=== PATIENT | male | born 1955 | race Caucasian/White ===

== ENCOUNTER 2019-03-15 17:04 | Emergency (ER) | payer BC, SELFPAY ==
[2019-03-15 19:19] LABS: Absolute Lymphocytes (CBC) 1.6 K/uL (0.7-4.9); Absolute Monocytes 0.8 K/uL (0.1-1.3); Absolute Neutrophil 4.2 K/uL (1.8-8.0); Basophils % 0.6 % (0-1.3); Eosinophils % 5.1 % (0-4.4); Hematocrit 46.1 % (39.6-49.0); Lymphocytes % 23.2 % (15.3-44.8); MPV 7.5 fL (7.6-11.3); RBC Red Blood Cell Count 4.94 M/uL (4.33-5.43)
[2019-03-15 19:21] LABS: Protime INR 0.94
--- NOTE | 2019-03-15 19:28 | RAD REPORT ---
EXAM DESCRIPTION: Tonia Single View03/15/2019 7:15 pm CLINICAL HISTORY: Chest pain COMPARISON: none FINDINGS: The lungs appear clear of acute infiltrate. The heart is normal size IMPRESSION: No acute abnormalities displayed
[2019-03-15 19:35] LABS: ALT/SGPT 24 U/L (12-78); AST/SGOT 13 U/L (15-37); Albumin 3.7 g/dL (3.4-5.0); Alkaline Phosphatase 57 U/L (45-117); BUN Blood Urea Nitrogen 20 mg/dL (7-18); Bicarbonate 26 mmol/L (21-32); Bilirubin Direct 0.1 mg/dL (0-0.2); Bilirubin Total 0.3 mg/dL (0.2-1.0); Glucose Level 86 mg/dL (74-106); Magnesium 2.2 mg/dL (1.8-2.4); NT PRO-BNP 23 pg/mL (<125); Potassium 4.1 mmol/L (3.5-5.1); Protein, Total 7.3 g/dL (6.4-8.2); Sodium Level 143 mmol/L (136-145); Troponin (Emerg Dept Use Only) < 0.02 ng/mL (0.0-0.045)
--- NOTE | 2019-03-15 19:57 | EDPHYS ---
Physician Documentation [facility] Name: Sean Serra Age: 63 yrs Sex: Male : 1955 Arrival Date: 03/15/2019 Time: 17:05 Bed 25 Private MD: ED Physician Dean Gaytan HPI: 03/15 19:50 This 63 yrs old Male presents to ER via Ambulatory with complaints of gs Palpitations, Chest Tightness. 19:50 Onset: The symptoms/episode began/occurred this morning. Duration: The patient or gs guardian reports multiple episodes, that wax and wane, with no pattern, the episodes last approximately 5 second(s). Modifying factors: The symptoms are aggravated by nothing. The symptoms are alleviated by nothing. Associated signs and symptoms: Pertinent negatives: SOB. Severity of symptoms: At their worst the symptoms were mild in the emergency department the symptoms have resolved. The patient has experienced similar episodes in the past, a few times. Historical: - Allergies: 17:10 IV CONTRAST; ss 17:10 Codeine; ss - Home Meds: 17:10 duloxetine oral oral [Active]; Crestor oral oral [Active]; ss - PMHx: 17:10 Anxiety; GERD; High Cholesterol; ss - PSHx: 17:10 R nephrectomy; ss - Immunization history:: Adult Immunizations up to date. - Social history:: Smoking status: Patient/guardian denies using tobacco. - Ebola Screening: : Patient denies exposure to infectious person Patient denies travel to an Ebola-affected area in the 21 days before illness onset. ROS: 19:50 All other systems are negative. gs Exam: 19:50 Head/Face: Normocephalic, atraumatic. Eyes: Pupils equal round and reactive to light, gs extra-ocular motions intact. Lids and lashes normal. Conjunctiva and sclera are non-icteric and not injected. Cornea within normal limits. Periorbital areas with no swelling, redness, or edema. ENT: Nares patent. No nasal discharge, no septal abnormalities noted. Tympanic membranes are normal and external auditory canals are clear. Oropharynx with no redness, swelling, or masses, exudates, or evidence of obstruction, uvula midline. Mucous membranes moist. Neck: Trachea midline, no thyromegaly or masses palpated, and no cervical lymphadenopathy. Supple, full range of motion without nuchal rigidity, or vertebral point tenderness. No Meningismus. Chest/axilla: Normal chest wall appearance and motion. Nontender with no deformity. No lesions are appreciated. Cardiovascular: Regular rate and rhythm with a normal S1 and S2. No gallops, murmurs, or rubs. Normal PMI, no JVD. No pulse deficits. Respiratory: Lungs have equal breath sounds bilaterally, clear to auscultation and percussion. No rales, rhonchi or wheezes noted. No increased work of breathing, no retractions or nasal flaring. Abdomen/GI: Soft, non-tender, with normal bowel sounds. No distension or tympany. No guarding or rebound. No evidence of tenderness throughout. Back: No spinal tenderness. No costovertebral tenderness. Full range of motion. Skin: Warm, dry with normal turgor. Normal color with no rashes, no lesions, and no evidence of cellulitis. MS/ Extremity: Pulses equal, no cyanosis. Neurovascular intact. Full, normal range of motion. Neuro: Awake and alert, GCS 15, oriented to person, place, time, and situation. Cranial nerves II-XII grossly intact. Motor strength 5/5 in all extremities. Sensory grossly intact. Cerebellar exam normal. Normal gait. 19:50 Constitutional: The patient appears alert, awake. 19:50 ECG was reviewed by the Attending Physician. Vital Signs: 17:10 BP 141 / 96; Pulse 88; Resp 16; Temp 97.9(TE); Pulse Ox 95% on R/A; Weight 92.99 kg; ss Height 6 ft. 0 in. (182.88 cm); Pain 3/10; 18:32 BP 136 / 92 RA Supine; Pulse 78; Resp 17 S; Pulse Ox 94% on R/A; rv 19:30 BP 148 / 88 RA Supine; Pulse 78; Resp 17 S; Pulse Ox 96% on R/A; rv 19:43 BP 129 / 93 RA Supine; Pulse 79; Resp 17 S; Pulse Ox 97% on R/A; rv 20:22 BP 143 / 98 RA Supine; Pulse 81; Resp 18 S; Pulse Ox 96% on R/A; rv 17:10 Body Mass Index 27.80 (92.99 kg, 182.88 cm) MDM: 18:47 Patient medically screened. gs 19:50 Differential diagnosis: arrythmia, cad, mi. Data reviewed: vital signs, nurses notes. gs Response to treatment: the patient's symptoms have resolved after treatment, the patient's pain is gone. 20:05 Counseling: I had a detailed discussion with the patient and/or guardian regarding: the gs historical points, exam findings, and any diagnostic results supporting the discharge/admit diagnosis, the presence of at least one elevated blood pressure reading (>120/80) during this emergency department visit, lab results, radiology results, the need for outpatient follow up. Special discussion: I have referred the patient to see his PCP for further evaluation of high blood pressure. 03/15 18:47 Order name: Basic Metabolic Panel; Complete Time: 19:43 03/15 18:47 Order name: CBC with Diff; Complete Time: 19:43 03/15 18:47 Order name: LFT's; Complete Time: 19:43 03/15 18:47 Order name: Magnesium; Complete Time: 19:43 03/15 18:47 Order name: NT PRO-BNP; Complete Time: 19:43 03/15 18:47 Order name: PT-INR; Complete Time: 19:43 03/15 17:14 Order name: EKG; Complete Time: 17:14 03/15 17:14 Order name: EKG - Nurse/Tech; Complete Time: 17:14 03/15 18:47 Order name: Troponin (emerg Dept Use Only); Complete Time: 19:43 03/15 18:47 Order name: XRAY Chest (1 view); Complete Time: 19:43 03/15 18:47 Order name: Cardiac monitoring; Complete Time: 19:06 03/15 18:47 Order name: IV Saline Lock; Complete Time: 19:06 03/15 18:47 Order name: Labs collected and sent; Complete Time: 19:06 03/15 18:47 Order name: O2 Per Protocol; Complete Time: 19:06 03/15 18:47 Order name: O2 Sat Monitoring; Complete Time: 19:07 gs EC:50 Rate is 88 beats/min. Rhythm is regular. CT interval is normal. QRS interval is normal. gs QT interval is normal. T waves are Normal. No ST changes noted. Clinical impression: Normal ECG. Interpreted by me. Administered Medications: No medications were administered Disposition: 03/15/19 19:57 Discharged to Home. Impression: Chest pain, unspecified. - Condition is Stable. - Discharge Instructions: Nonspecific Chest Pain, Exercise Stress Electrocardiogram. - Medication Reconciliation Form, Thank You Letter, Antibiotic Education, Prescription Opioid Use form. - Follow up: Parish Morgan MD; When: 1 - 2 days; Reason: Re-evaluation by your physician. Signatures: Dispatcher [employer] EDVT Kera Frank RN RN Dean Gaytan MD MD Vasiliy Mackey RN RN rv Corrections: (The following items were deleted from the chart) 20:23 19:57 03/15/2019 19:57 Discharged to Home. Impression: Chest pain, unspecified. rv Condition is Stable. Forms are Medication Reconciliation Form, Thank You Letter, Antibiotic Education, Prescription Opioid Use. Follow up: Parish Morgan; When: 1 - 2 days; Reason: Re-evaluation by your physician. gs
--- NOTE | 2019-03-15 19:57 | ER ---
Nurse's Notes [facility] Name: Sean Serra Age: 63 yrs Sex: Male : 1955 Arrival Date: 03/15/2019 Time: 17:05 Bed 25 Private MD: Diagnosis: Chest pain, unspecified Presentation: 03/15 17:07 Presenting complaint: Patient states: fluttering in chest and feeling "lousy" that ss began "a few days ago". Transition of care: patient was not received from another setting of care. Onset of symptoms was March 10, 2019. Risk Assessment: Do you want to hurt yourself or someone else? Patient reports no desire to harm self or others. Initial Sepsis Screen: Does the patient meet any 2 criteria? No. Patient's initial sepsis screen is negative. Does the patient have a suspected source of infection? No. Patient's initial sepsis screen is negative. Care prior to arrival: None. 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 - Social history:: Smoking status: Patient/guardian denies using tobacco. - Ebola Screening: : Patient denies exposure to infectious person Patient denies travel to an Ebola-affected area in the 21 days before illness onset. Screenin:31 Abuse screen: Denies threats or abuse. Denies injuries from another. Nutritional rv screening: No deficits noted. Tuberculosis screening: No symptoms or risk factors identified. Fall Risk None identified. Assessment: 18:31 General: Appears in no apparent distress. comfortable, Behavior is calm, cooperative. rv Pain: Complains of pain in chest Pain does not radiate. Pain began suddenly. Neuro: Level of Consciousness is awake, alert, obeys commands, Oriented to person, place, time, situation. Cardiovascular: Capillary refill < 3 seconds. Respiratory: Airway is patent. GI: No signs and/or symptoms were reported involving the gastrointestinal system. : No signs and/or symptoms were reported regarding the genitourinary system. EENT: No signs and/or symptoms were reported regarding the EENT system. Derm: Skin is intact. 19:45 Reassessment: Patient appears in no apparent distress at this time. Patient and/or rv family updated on plan of care and expected duration. Pain level reassessed. Patient is alert, oriented x 3, equal unlabored respirations, skin warm/dry/pink. Vital Signs: 17:10 BP 141 / 96; Pulse 88; Resp 16; Temp 97.9(TE); Pulse Ox 95% on R/A; Weight 92.99 kg; ss Height 6 ft. 0 in. (182.88 cm); Pain 3/10; 18:32 BP 136 / 92 RA Supine; Pulse 78; Resp 17 S; Pulse Ox 94% on R/A; rv 19:30 BP 148 / 88 RA Supine; Pulse 78; Resp 17 S; Pulse Ox 96% on R/A; rv 19:43 BP 129 / 93 RA Supine; Pulse 79; Resp 17 S; Pulse Ox 97% on R/A; rv 20:22 BP 143 / 98 RA Supine; Pulse 81; Resp 18 S; Pulse Ox 96% on R/A; rv 17:10 Body Mass Index 27.80 (92.99 kg, 182.88 cm) ED Course: 17:05 Patient arrived in ED. as 17:10 Arm band placed on right wrist. ss 17:14 Triage completed. ss 17:26 EKG done, by dairy technician. reviewed by Romel Shell MD. sm3 18:21 Dean Gaytan MD is Attending Physician. gs 18:31 Vasiliy Mackey, CLAUDIA is Primary Nurse. rv 18:32 Patient has correct armband on for positive identification. Placed in gown. Bed in low rv position. Call light in reach. Side rails up X 1. Pulse ox on. NIBP on. 18:32 Patient maintains SpO2 saturation greater than 95% on room air. rv 19:06 Initial lab(s) drawn, by me, sent to lab. Inserted saline lock: 22 gauge in left lt1 antecubital area, using aseptic technique. 19:15 XRAY Chest (1 view) In Process Unspecified. EDMS 19:56 Parish Morgan MD is Referral Physician. gs 20:22 No provider procedures requiring assistance completed. IV discontinued, intact, rv bleeding controlled, No redness/swelling at site. Pressure dressing applied. Administered Medications: No medications were administered Outcome: 19:57 Discharge ordered by . gs 20:22 Discharged to home ambulatory. rv 20:22 Condition: good 20:22 Discharge instructions given to patient, Instructed on discharge instructions, follow up and referral plans. Demonstrated understanding of instructions, follow-up care. 20:23 Patient left the ED. rv Signatures: Dispatcher [employer] Ave Kirkpatrick Shelby, CLAUDIA RN Dean Gaytan MD MD gs Montes, Shakira sm3 Vasiliy Mackey RN RN rv Saniya Rivers lt1
--- NOTE | 2019-03-16 05:49 | EKG ---
Test Date: 2019-03-15 Test Time: 17:10:17 Sewer Connector: STEFAN MEASUREMENT RESULTS: Intervals: Rate: 88 NH: 122 QRSD: 82 QT: 350 QTc: 423 [place]: P: 17 NH: 122 QRS: 4 T: 29 INTERPRETIVE STATEMENTS: Normal sinus rhythm Normal ECG No previous ECG available for comparison Electronically Signed On 03-16-19 05:48:58 CDT by Parish Morgan
== END 2019-03-15 20:23 | disposition home or self-care (01) ==
LOC: ER 17:04
DX: R07.9 Chest pain, unspecified (principal); E78.00 Pure hypercholesterolemia, unspecified; K21.9 Gastro-esophageal reflux disease without esophagitis; F41.9 Anxiety disorder, unspecified; Z79.899 Other long term (current) drug therapy
CPT/HCPCS: 36415; 71045; 80048; 80076; 83735; 83880; 84484; 85025; 85610; 93005; 99284